=== PATIENT | male | born 1960 ===

== ENCOUNTER 2020-10-16 09:00 | Inpatient (IN) | payer BC ==
[2020-11-09] MEDS ORDERED: Vancomycin 1.5 GRAM/300 ML BAG ONE (05:53)
[2020-11-09] MEDS ORDERED: Tranexamic Acid 1,000 MG/10 ML VIAL ONE ×2 (05:53→09:31)
[2020-11-09] MEDS ORDERED: Sodium Chloride 0.9% 100 ML ONE (05:53)
[2020-11-09] MEDS ORDERED: Fentanyl 100 MCG/2 ML VIAL ONE ×3 (06:03→08:50)
[2020-11-09] MEDS ORDERED: Bupivacaine PF 0.5% 30 ML VIAL ONE (06:28)
[2020-11-09] MEDS ORDERED: Midazolam HCl 2 mg/2 ml Vial ONE (06:35)
[2020-11-09] MEDS ORDERED: EPINEPHrine 1 MG/ML AMP ONE (06:37)
[2020-11-09] MEDS ORDERED: ePHEDrine 50 MG/ML VIAL ONE (06:45)
[2020-11-09] MEDS ORDERED: Ropivacaine 2% HCl/PF (20 MG/10 ML VIAL) ONE (06:45)
[2020-11-09] MEDS ORDERED: PHENYLEPHRINE-NS 100 MCG/ML 10 ML SYRINGE ONE (06:45)
[2020-11-09] MEDS ORDERED: PROPOFOL 200 MG/20 ML VIAL ONE (06:45)
[2020-11-09] MEDS ORDERED: Ondansetron PF 4 MG/2 ML Vial ONE (06:45)
[2020-11-09] MEDS ORDERED: Bupivacaine HCl 0.5%/Epinephrine 1:200,000/PF 30 ml Vial ONE (06:45)
[2020-11-09] MEDS ORDERED: Dexamethasone 20 MG/5 ML VIAL ONE (06:45)
[2020-11-09] MEDS ORDERED: Ondansetron PF 4 MG/2 ML Vial IVP PRN ×2 (07:16→08:30)
[2020-11-09] MEDS ORDERED: Promethazine HCl 25 MG/ML VIAL IM PRN ×3 (07:16→09:29)
[2020-11-09] MEDS ORDERED: Fentanyl 100 MCG/2 ML VIAL SLOW IVP PRN (07:16)
[2020-11-09] MEDS ORDERED: Zolpidem Tartrate 5 MG TAB PO PRN (07:16)
[2020-11-09] MEDS ORDERED: diphenhydrAMINE 25 MG CAP PO PRN (07:16)
[2020-11-09] MEDS ORDERED: HYDROcodone/Acetaminophen 10/325 mg Tablet PO PRN ×2 (07:16)
[2020-11-09] MEDS ORDERED: Tranexamic Acid 1,000 MG in Sodium Chloride 0.9% 100 ML IVPB SCH (07:30)
[2020-11-09] MEDS ORDERED: Fentanyl 100 MCG/2 ML VIAL IV PRN (08:21)
[2020-11-09] MEDS ORDERED: Ropivacaine HCl/PF 250 ML in Premix Bag 1 BAG NERVE BLCK SCH (08:30)
[2020-11-09] MEDS ORDERED: Ondansetron HCl/PF 4 MG/2 ML Vial IVP PRN (09:29)
[2020-11-09] MEDS ORDERED: Promethazine HCl 25 MG/ML VIAL SLOW IVP PRN (09:29)
[2020-11-09] MEDS ORDERED: Ketorolac Tromethamine 30 MG/ML VIAL IVP SCH (12:00)
[2020-11-09 13:13] VITALS: BMI 32.8
[2020-11-09] MEDS: Aspirin 81 mg Enteric Coated Tablet PO SCH ×2 (13:14→20:00)
[2020-11-09] MEDS: Multivitamin W/ Minerals 1 TAB PO SCH (13:15)
[2020-11-09] MEDS: Ferrous Gluconate 324 MG TAB PO SCH ×2 (13:15→20:01)
[2020-11-09] MEDS: Senokot S 8.6-50 MG TAB PO SCH ×2 (13:16→20:00)
[2020-11-09] MEDS: Sodium Chloride 0.9% 1,000 ML IV SCH ×2 (13:17→19:23)
[2020-11-09] MEDS: CEFAZOLIN 2 GM in Premix Bag 1 BAG IVPB SCH ×2 (15:13→22:02)
[2020-11-09] MEDS: Ketorolac Tromethamine 30 MG/ML VIAL IVP SCH ×2 (15:13→22:02)
[2020-11-09] MEDS ORDERED: Vancomycin 1.5 GRAM/300 ML BAG 1.5 GM in Premix Bag 1 BAG IVPB SCH (18:00)
[2020-11-09] MEDS: traMADol HCl 50 MG TAB PO PRN (19:22)
[2020-11-09] MEDS: Zolpidem Tartrate 5 MG TAB PO PRN (22:03)
[2020-11-10] MEDS: Sodium Chloride 0.9% 1,000 ML IV SCH ×2 (03:08→12:37)
[2020-11-10 05:17] LABS: Hemoglobin 12.4 g/dL (14.0-18.0); Mean Corpuscular HGB CONC 34.7 g/dL (32.0-36.0); Mean Corpuscular Hemoglobin 32.1 pg (27.0-31.0); Mean Corpuscular Volume 92.6 fL (78.0-98.0); Mean Platelet Volume 6.9 fL (7.4-10.4); Platelet Count 212 thou/uL (130-400); RBC Distribution Width 11.7 % (11.5-14.5); Red Blood Cell (RBC) Count 3.86 mill/uL (4.70-6.10); White Blood Cell (WBC) Count 10.5 thou/uL (4.8-10.8)
[2020-11-10] MEDS: Ketorolac Tromethamine 30 MG/ML VIAL IVP SCH ×3 (05:26→21:55)
[2020-11-10] MEDS: Aspirin 81 mg Enteric Coated Tablet PO SCH ×2 (08:19→19:29)
[2020-11-10] MEDS: Ferrous Gluconate 324 MG TAB PO SCH ×2 (08:19→19:29)
[2020-11-10] MEDS: Multivitamin W/ Minerals 1 TAB PO SCH (08:20)
[2020-11-10] MEDS: Senokot S 8.6-50 MG TAB PO SCH ×2 (08:20→19:30)
[2020-11-10] MEDS: traMADol HCl 50 MG TAB PO PRN ×2 (08:25→18:07)
[2020-11-10] MEDS: Morphine 2 MG/ML VIAL SLOW IVP PRN ×3 (10:38→18:35)
[2020-11-10] MEDS ORDERED: oxyCODONE 5 MG TAB PO PRN (10:47)
[2020-11-10] MEDS: oxyCODONE 5 MG TAB PO PRN ×2 (13:10→19:33)
[2020-11-10] MEDS: Zolpidem Tartrate 5 MG TAB PO PRN (21:55)
[2020-11-11] MEDS: Sodium Chloride 0.9% 1,000 ML IV SCH ×3 (01:08→20:34)
[2020-11-11] MEDS: oxyCODONE 5 MG TAB PO PRN ×4 (03:00→20:49)
[2020-11-11] MEDS: Ketorolac Tromethamine 30 MG/ML VIAL IVP SCH ×2 (05:18→13:25)
[2020-11-11 05:29] LABS: Hemoglobin 11.4 g/dL (14.0-18.0); Mean Corpuscular Hemoglobin 32.3 pg (27.0-31.0); Mean Corpuscular Volume 92.2 fL (78.0-98.0); Platelet Count 184 thou/uL (130-400); RBC Distribution Width 11.7 % (11.5-14.5); Red Blood Cell (RBC) Count 3.55 mill/uL (4.70-6.10); White Blood Cell (WBC) Count 9.9 thou/uL (4.8-10.8)
[2020-11-11] MEDS: Aspirin 81 mg Enteric Coated Tablet PO SCH ×2 (08:12→19:36)
[2020-11-11] MEDS: Senokot S 8.6-50 MG TAB PO SCH ×2 (08:12→19:36)
[2020-11-11] MEDS: Ferrous Gluconate 324 MG TAB PO SCH ×2 (08:12→19:36)
[2020-11-11] MEDS: Multivitamin W/ Minerals 1 TAB PO SCH (08:12)
[2020-11-11] MEDS: traMADol HCl 50 MG TAB PO PRN (12:14)
[2020-11-11] MEDS: Zolpidem Tartrate 5 MG TAB PO PRN (20:49)
[2020-11-12] MEDS: oxyCODONE 5 MG TAB PO PRN ×2 (03:08→08:44)
[2020-11-12] MEDS: Sodium Chloride 0.9% 1,000 ML IV SCH (03:45)
[2020-11-12 05:42] LABS: Hemoglobin 11.7 g/dL (14.0-18.0); Mean Corpuscular HGB CONC 35.4 g/dL (32.0-36.0); Mean Corpuscular Hemoglobin 32.6 pg (27.0-31.0); Mean Corpuscular Volume 92.2 fL (78.0-98.0); Mean Platelet Volume 7.4 fL (7.4-10.4); Platelet Count 190 thou/uL (130-400); RBC Distribution Width 11.7 % (11.5-14.5); White Blood Cell (WBC) Count 9.3 thou/uL (4.8-10.8)
[2020-11-12] MEDS: traMADol HCl 50 MG TAB PO PRN ×2 (06:26→12:36)
[2020-11-12 08:01] VITALS: BP 104/71; TEMP 98.8
[2020-11-12] MEDS: Ferrous Gluconate 324 MG TAB PO SCH (08:44)
[2020-11-12] MEDS: Multivitamin W/ Minerals 1 TAB PO SCH (08:44)
[2020-11-12] MEDS: Aspirin 81 mg Enteric Coated Tablet PO SCH (08:44)
[2020-11-12] MEDS: Senokot S 8.6-50 MG TAB PO SCH (08:44)
== END 2020-11-12 15:06 | disposition home or self-care (01) | DRG 470 ==
LOC: SURG A 11-09 05:24 → EDSTATUS 11-09 09:00 → SURG B 11-09 11:22
PROVIDERS: ADMIT Orthopaedic Surgery; ATTEND Orthopaedic Surgery
PROC: 0SRC0J9 Replacement of Right Knee Joint with Synthetic Substitute, Cemented, Open Approach (ICD-10-PCS; principal; 2020-11-09)
PROC: 0QPG04Z Removal of Internal Fixation Device from Right Tibia, Open Approach (ICD-10-PCS; 2020-11-09)
DX: M17.11 Unilateral primary osteoarthritis, right knee (principal); Z88.8 Allergy status to other drugs, medicaments and biological substances; Z98.890 Other specified postprocedural states
CPT/HCPCS: 36415; 85027; C1713; C1776; J0171; J0690; J1100; J1885; J2250; J2270; J2405; J2704; J2795; J3010; J3370; J3490; S0020

== ENCOUNTER 2020-11-04 08:35 | Outpatient (CLI) | payer BC ==
[2020-11-04 10:12] LABS: Bilirubin Neg (Negative); Blood, Urine Negative (Negative); Clarity Clear (Clear); Glucose, Urine (Dipstick) Normal (Negative); Ketone, Urine 50 mg/dL (Negative); Leukocyte Negative (Negative); Nitrite Negative (Negative); Protein, Urine (Dipstick) Negative (Neg-Trace); Specific Gravity, Urine 1.015 (1.002-1.036); Urobilinogen Normal mg/dL (Less than 2)
[2020-11-04 10:23] LABS: #Basophils 0.1 10x3/uL (0.0-0.2); #Eosinphils 0.2 10x3/uL (0.0-0.5); #Monocytes 0.6 10x3/uL (0.0-1.1); #Neutrophils 4.2 10x3/uL (1.5-8.4); %Eosinophils 3.1 % (0.0-6.0); %Lymphocytes 27.9 % (18.0-47.0); %Monocytes 8.2 % (0.0-10.0); %Neutrophils 59.4 % (40.0-75.0); Hemoglobin 15.2 g/dL (13.5-17.5); Mean Corpuscular HGB CONC 34.4 g/dL (32.0-36.0); Mean Corpuscular Hemoglobin 30.8 pg (27.0-33.0); Mean Corpuscular Volume 89.7 fl (81.2-95.1); Mean Platelet Volume 9.6 fl (7.4-10.4); Platelet Count 249 10x3/uL (150-450); RBC Distribution Width 12.4 % (11.5-14.5); Red Blood Cell (RBC) Count 4.93 10x6/uL (4.32-5.72); White Blood Cell (WBC) Count 7.1 10x3/uL (3.5-10.5)
[2020-11-04 10:40] LABS: Prothrombin Time 10.4 sec (9.5-12.1)
[2020-11-04 10:46] LABS: Anion Gap 15 mmol/L (10-20); BUN (Urea Nitrogen) 12 mg/dL (8.4-25.7); Calc. Creatinine Clearance 0 mL/min (70-130); Calcium 9.7 mg/dL (7.8-10.44); Carbon Dioxide 23 mmol/L (22-29); Chloride 105 mmol/L (98-107); Glucose 82 mg/dL (70-105); Potassium 4.4 mmol/L (3.5-5.1); Sodium 139 mmol/L (136-145)
[2020-11-04 13:07] LABS: RBC/HPF 0-3 HPF (0-3); WBC/HPF 0-3 HPF (0-3)
[2020-11-04 13:08] LABS: Bacteria/HPF Rare-Few HPF (None Seen); Squamous Epithelial 0-3 HPF (0-3)
[2020-11-04 22:06] LABS: SARS-CoV-2 PCR by NAA Not Detected (NotDetected)
== END 2020-11-04 08:36 | disposition home or self-care (01) ==
LOC: LABBT 08:35
PROVIDERS: ATTEND Orthopaedic Surgery
DX: Z01.818 Encounter for other preprocedural examination (principal); M17.11 Unilateral primary osteoarthritis, right knee; Z20.822 Contact with and (suspected) exposure to COVID-19
CPT/HCPCS: 80048; 81001; 85025; 85610; 87081; 87635; 93005; 93010; U0003; U0005